=== PATIENT | male | born 1960 | race African-American/Black ===

== ENCOUNTER 2019-07-22 22:43 | Emergency (ER) | payer OTHER ==
[2019-07-22 22:52] VITALS: BP 131/89; PULSE 100; TEMP 98.1; BMI 31.3
--- NOTE | 2019-07-22 23:24 | PDOC ---
History of Present Illness - General Chief Complaint: RX Refill Stated Complaint: LUMP ON PELVIC AREA Time Seen by Provider: 07/22/19 23:05 Past History - Past Medical History Allergies/Adverse Reactions: Allergies Allergy/AdvReac Type Severity Reaction Status Date / Time No Known Allergies Allergy Verified 07/22/19 22:47 - Suicide/Smoking/Psychosocial Hx Smoking History: Never smoked Hx Alcohol Use: Yes Drug/Substance Use Hx: No *Physical Exam - Vital Signs Last Vital Signs Temp Pulse Resp BP Pulse Ox 98.1 F 100 H 18 131/89 100 07/22/19 22:48 07/22/19 22:48 07/22/19 22:48 07/22/19 22:48 07/22/19 22:48 *DC/Admit/Observation/Transfer Diagnosis at time of Disposition: Hernia - Discharge Dispostion Disposition: HOME Condition at time of disposition: Stable Decision to Admit order: No - Referrals - Patient Instructions Printed Discharge Instructions: DI for Groin Hernia Additional Instructions: You were evaluated for the lump near your groin It is most likely a hernia as it is reducible. There is nothing to do for your hernia today. Please follow up with your primary care doctor for further management of your symptoms. Please also call your primary care doctor (Brandi Bruno) to refill your blood pressure medications as we could not refill them tonight as you could not remember the name of the medication Return to the ER for abdominal pain, fever, urinary discomfort, headache, dizziness, or if you have any changes in your symptoms - Post Discharge Activity Forms/Work/School Notes: Back to Work
== END 2019-07-23 00:15 | disposition home or self-care (01) ==
LOC: JER 22:43
DX: K46.9 Unspecified abdominal hernia without obstruction or gangrene (principal)
CPT/HCPCS: 99282-25